=== PATIENT | male | born 1975 | race Caucasian/White ===

== ENCOUNTER 2020-02-15 23:15 | Emergency (ER) | payer OTHER ==
[~2020-02-15] VITALS: Ht 195.6 cm; Wt 99.8 kg
[2020-02-15] MEDS ORDERED: GABAPENTIN800 M1 PO (23:44)
[2020-02-16 00:17] LABS: HEMATOCRIT 37.2 % (42.0-52.0); HEMOGLOBIN 12.8 gm/dL (14.0-18.0); MCH 32.5 pg (26.0-34.0); MCHC 34.5 g/dL (28.0-37.0); MCV 94.1 fL (80.0-100.0); MPV 7.6 fl. (7.2-11.1); RBC 3.96 mil/uL (4.50-6.00); RDW-CV 14.1 % (10.5-14.5); WBC 11.5 thou/uL (4.0-11.0)
[2020-02-16 00:25] LABS: CALCIUM 8.4 mg/dL (8.5-10.1); CREATININE 1.1 mg/dL (0.6-1.3); POTASSIUM 3.6 mmol/L (3.5-5.1)
[2020-02-16 00:30] LABS: ALBUMIN 3.5 g/dL (3.4-5.0); TOTAL BILIRUBIN 0.4 mg/dL (<0.1-1.0); TOTAL PROTEIN 7.6 g/dL (6.4-8.2)
[2020-02-16 01:16] LABS: SOURCE knee; TOTAL VOLUME 2 ml
[2020-02-16 01:17] LABS: CLARITY SLIGHTLY HAZY
[2020-02-16 01:18] LABS: BF RBC 4481 /mm3
[2020-02-16] MEDS ORDERED: DOXYCYCLINE 10100 M2 PO (01:41)
[2020-02-16 01:50] LABS: BF EOSINOPHILS 1 %; BF LYMPHOCYTES 2 %; BF MONOCYTES 8 %; BF POLYS 89 %
[2020-02-16 02:00] VITALS: BP 145/70
[2020-02-16 06:50] LABS: TOTAL CELL COUNT 1599 /mm3
[2020-02-19 16:07] LABS: BODY FLUID PROTEIN 3.6 g/dL (())
[2020-02-19 22:43] LABS: SOURCE KNEE JOINT
== END 2020-02-16 02:00 | disposition home or self-care (01) ==
LOC: M.ERS 23:15
PROVIDERS: Emergency Medicine Emergency Medical Services
DX: M70.41 Prepatellar bursitis, right knee (principal); Z88.2 Allergy status to sulfonamides; Z88.1 Allergy status to other antibiotic agents; Y93.89 Activity, other specified